=== PATIENT | female | born 1975 | race Caucasian/White ===

== ENCOUNTER 2017-01-24 09:29 | Inpatient (IN) | payer BC ==
[~2017-01-24] VITALS: Ht 157.5 cm; Wt 91.0 kg
[2017-01-24] MEDS ORDERED: morphine 4 MG/ML VIAL IV STA ×3 (12:03→19:05)
[2017-01-24] MEDS ORDERED: SOD CHLORIDE 0.9% 1,000 ML IV STA (12:03)
[2017-01-24] MEDS ORDERED: ONDANSETRON 4 MG INJ IV STA (12:03)
[2017-01-24 12:42] LABS: BASOPHILS % 0.3 % (0.0-2.0); EOSINOPHILS # 0.1 10^3/ul (0.0-0.5); EOSINOPHILS % 0.5 % (0.0-7.0); HEMOGLOBIN 12.9 g/dl (12.0-16.0); LYMPHOCYTES # 2.1 10^3/ul (0.8-2.9); LYMPHOCYTES % 14.7 % (15.0-51.0); MEAN CORPUSCULAR HEMOGLOBIN 29.7 pg (29.0-33.0); MEAN CORPUSCULAR HGB CONC 33.1 g/dl (32.0-37.0); MEAN CORPUSCULAR VOLUME 89.9 fl (82.0-101.0); MEAN PLATELET VOLUME 9.7 fl (7.4-10.4); MONOCYTE # 0.7 10^3/ul (0.3-0.9); NEUTROPHIL # 11.5 10^3/ul (1.6-7.5); NEUTROPHILS % 79.2 % (39.0-77.0); PLATELET COUNT 402 10^3/UL (140-415); RED BLOOD COUNT 4.34 10^6/ul (4.20-5.40); RED CELL DISTRIBUTION WIDTH 13.3 % (11.5-14.5); WHITE BLOOD COUNT 14.5 10^3/ul (4.8-10.8)
[2017-01-24 12:45] LABS: ADD UMIC NO; UR ASCORBIC ACID NEGATIVE (NEGATIVE); UR BILIRUBIN (Dip) NEGATIVE (NEGATIVE); UR BLOOD (Dip) NEGATIVE (NEGATIVE); UR CLARITY CLEAR (CLEAR); UR COLOR YELLOW (YELLOW); UR GLUCOSE (Dip) NEGATIVE (NEGATIVE); UR KETONES (Dip) NEGATIVE (NEGATIVE); UR LEUKOCYTE ESTERASE (Dip) NEGATIVE Leu/ul (NEGATIVE); UR NITRITE (Dip) NEGATIVE (NEGATIVE); UR SPECIFIC GRAVITY (Dip) 1.028 (1.003-1.030); UR TOTAL PROTEIN (Dip) NEGATIVE (NEGATIVE); UR UROBILINOGEN (Dip) NEGATIVE (NEGATIVE)
[2017-01-24 13:00] LABS: ALBUMIN 4.4 g/dl (3.3-4.9); ALBUMIN/GLOBULIN RATIO 1.15; BILIRUBIN,INDIRECT 0.2 mg/dl (0-1.1); BILIRUBIN,TOTAL 0.2 mg/dl (0.2-1.3); CALCIUM 10.2 mg/dl (8.4-10.2); CREATININE 0.67 mg/dl (0.44-1.00); POTASSIUM 4.4 mmol/L (3.5-5.1); TOTAL PROTEIN 8.2 g/dl (6.1-8.1)
[2017-01-24 13:03] LABS: INR 0.94; PROTIME 12.7 Sec (11.9-14.9)
[2017-01-24 13:04] LABS: PARTIAL THROMBOPLASTIN TIME 27.9 Sec (25.0-35.0)
[2017-01-24] MEDS ORDERED: KETOROLAC 30 MG INJ IV STA (14:34)
[2017-01-24] MEDS ORDERED: ACETAMINOPHEN 325 MG TAB PO PRN ×2 (16:00→18:00)
[2017-01-24] MEDS ORDERED: ONDANSETRON 4 MG INJ IV PRN (16:00)
[2017-01-24] MEDS ORDERED: LISI10TA2 PO (16:19)
[2017-01-24] MEDS ORDERED: ASPI-664 PO (16:20)
[2017-01-24] MEDS ORDERED: PROP10TA6 PO (16:20)
[2017-01-24] MEDS ORDERED: GEMF600T60 PO (16:20)
--- NOTE | 2017-01-24 17:39 | HP ---
Date/Time of Note Date/Time of Note DATE: 01/24/17 TIME: 17:30 Assessment/Plan VTE Prophylaxis VTE Prophylaxis Intervention: LMWH Assessment/Plan Chief Complaint/Hosp Course 1. 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 Leukocytosis-likely reactive Monitor 3. Elevated LFTs Check hepatitis family law attorney PPx: Lovenox Problems: HPI/ROS Admit Date/Time Admit Date/Time January 24, 2017 Hx of Present Illness Patient is a 41-year-old female with a history of splenic infarction, patient was recently diagnosed at [facility], she was discharged yesterday after a week long hospitalization. Patient presents today with left upper quadrant pain, of note patient was discharged with pain medications. Patient also reports a history of strokes several years ago although this is questionable as weakness in her body was associated with severe headaches and may have been hemiplegia from a migraine. Patient denies any other medical history, she states that she was told her spleen is nonfunctional. Patient has no other complaints at this time. ROS Constitutional: improved, no complaints Eyes: no complaints ENT: no complaints Respiratory: no complaints Cardiovascular: no complaints Gastrointestinal: pain Genitourinary: no complaints Musculoskeletal: no complaints Skin: no complaints Neurologic: no complaints Endocrine: no complaints Lymphatic: no complaints Psychological: nl mood/affect, no complaints Immunologic: no complaints PMH/Family/Social Past Medical History As per HPI Past Surgical History Past Surgical Hx: appendectomy, cholecystectomy, other () Family History Significant Family History: other (Father with stroke in his 50s) Social History Alcohol Use: none Smoking Status: Never smoker Drug Use: none Exam/Review of Systems Vital Signs Vitals Vital Signs Date Time Temp Pulse Resp B/P Pulse Ox O2 Delivery O2 Flow Rate FiO2 01/24/17 09:34 98.2 102 20 147/94 97 Exam Constitutional: alert, oriented Respiratory: clear to auscultation Cardiovascular: regular rate and rhythm Gastrointestinal: soft, tender, No distended Musculoskeletal: nl extremities to inspection Labs Result Diagram: 01/24/17 1217 01/24/17 1217 VIOLETTE PARDO Jan 24, 2017 17:39
[2017-01-24] MEDS ORDERED: NACL 0.9% 3 ML SYG IV SCH (18:00)
[2017-01-24] MEDS ORDERED: MAGNESIUM HYDROXIDE 30ML CUP PO PRN (18:00)
[2017-01-24] MEDS ORDERED: DOCUSATE SODIUM 100 MG CAP PO PRN (18:00)
[2017-01-24] MEDS ORDERED: ZOLPIDEM 5 MG TAB PO PRN (18:00)
--- NOTE | 2017-01-24 18:02 | ERD ---
ER Documentation Chief Complaint Chief Complaint luq pain just dc'd from other hosp for dx "splenic infarction" HPI This 41-year-old female comes for increasing left upper quadrant pain that has been present since yesterday when she was discharged from the hospital after the morphine wore off. She was seen at [facility] where she had splenic infarction diagnosed. She had no pain while in the hospital because they are giving her constant doses of morphine. She had no pain on discharge either because she had been given morphine. As soon as she got home the morphine wore off and she has had increasingly severe left lower quadrant pain with nausea. The pain is described as a sharp pain is worse on palpation and certain movements. ROS All systems reviewed and are negative except as per history of present illness. Medications Home Meds Reported Medications Gemfibrozil* (Gemfibrozil*) 600 Mg Tablet, 600 MG PO DAILY, TAB 01/24/17 Aspirin* (Aspirin* EC) 81 Mg Tablet.dr, 81 MG PO DAILY, TAB 01/24/17 Propranolol Hcl* (Propranolol Hcl*) 10 Mg Tablet, 10 MG PO DAILY, TAB 01/24/17 Lisinopril* (Lisinopril*) 10 Mg Tablet, 10 MG PO DAILY, #30 TAB 01/24/17 Allergies Allergies: Coded Allergies: latex (Unverified Allergy, Unknown, 01/24/17) PMhx/Soc Hx Cardiac Disorders: Yes (HTN) Hx Alcohol Use: No Hx Substance Use: No Hx Tobacco Use: No Smoking Status: Never smoker Physical Exam Vitals Vital Signs Date Time Temp Pulse Resp B/P Pulse Ox O2 Delivery O2 Flow Rate FiO2 01/24/17 18:58 98.1 72 20 149/92 99 Room Air 01/24/17 18:26 98.5 78 20 130/78 98 Room Air 01/24/17 15:45 71 20 128/71 98 Room Air 01/24/17 09:34 98.2 102 20 147/94 97 Physical Exam Const: [] Moderate distress Head: Atraumatic Eyes: Normal Conjunctiva ENT: Normal External Ears, Nose and Mouth. Neck: Full range of motion..~ No meningismus. Resp: Clear to auscultation bilaterally Cardio: Regular rate and rhythm, no murmurs Abd: Soft, moderate left upper quadrant tenderness without guarding or rebound, non distended. Normal bowel sounds Skin: No petechiae or rashes Back: No midline or flank tenderness Ext: No cyanosis, or edema Neur: Awake and alert 3, no focal deficits Psych: Normal Mood and Affect Result Diagram: 01/24/17 1217 01/24/17 1217 Results 24 hrs Laboratory Tests Test 01/24/17 12:17 White Blood Count 14.510^3/ul Red Blood Count 4.3410^6/ul Hemoglobin 12.9g/dl Hematocrit 39.0% Mean Corpuscular Volume 89.9fl Mean Corpuscular Hemoglobin 29.7pg Mean Corpuscular Hemoglobin Concent 33.1g/dl Red Cell Distribution Width 13.3% Platelet Count 35728^3/UL Mean Platelet Volume 9.7fl Neutrophils % 79.2% Lymphocytes % 14.7% Monocytes % 5.0% Eosinophils % 0.5% Basophils % 0.3% Nucleated Red Blood Cells % 0.0/100WBC Neutrophils # 11.510^3/ul Lymphocytes # 2.110^3/ul Monocytes # 0.710^3/ul Eosinophils # 0.110^3/ul Basophils # 0.010^3/ul Nucleated Red Blood Cells # 0.010^3/ul Prothrombin Time 12.7Sec Prothrombin Time Ratio 1.0 INR International Normalized Ratio 0.94 Activated Partial Thromboplast Time 27.9Sec Urine Color YELLOW Urine Clarity CLEAR Urine pH 8.0 Urine Specific [place] 1.028 Urine Ketones NEGATIVEmg/dL Urine Nitrite NEGATIVEmg/dL Urine Bilirubin NEGATIVEmg/dL Urine Urobilinogen NEGATIVEmg/dL Urine Leukocyte Esterase NEGATIVELeu/ul Urine Hemoglobin NEGATIVEmg/dL Urine Glucose NEGATIVEmg/dL Urine Total Protein NEGATIVEmg/dl Sodium Level 140mmol/L Potassium Level 4.4mmol/L Chloride Level 103mmol/L Carbon Dioxide Level 28mmol/L Anion Gap 13 Blood Urea Nitrogen 12mg/dl Creatinine 0.67mg/dl Glucose Level 102mg/dl Calcium Level 10.2mg/dl Total Bilirubin 0.2mg/dl Direct Bilirubin 0.00mg/dl Indirect Bilirubin 0.2mg/dl Aspartate Amino Transf (AST/SGOT) 93IU/L Alanine Aminotransferase (ALT/SGPT) 138IU/L Alkaline Phosphatase 114IU/L Total Protein 8.2g/dl Albumin 4.4g/dl Globulin 3.80g/dl Albumin/Globulin Ratio 1.15 Lipase 71U/L Current Medications Medications (Trade) Dose Ordered Sig/Hernandez Route PRN Reason Start Time Stop Time Status Last Admin Dose Admin Sodium Chloride (NS) 1,000 ml @ 1,000 mls/hr Q1H STAT IV 01/24/17 12:03 01/24/17 13:02 DC 01/24/17 12:22 Morphine Sulfate (morphine) 4 mg ONCE STAT IV 01/24/17 12:03 01/24/17 12:05 DC 01/24/17 12:22 Ondansetron HCl (Zofran Inj) 4 mg ONCE STAT IV 01/24/17 12:03 01/24/17 12:05 DC 01/24/17 12:23 Ketorolac Tromethamine (Toradol) 30 mg ONCE STAT IV 01/24/17 14:34 01/24/17 14:36 DC 01/24/17 15:37 Morphine Sulfate (morphine) 4 mg ONCE STAT IV 01/24/17 15:32 01/24/17 15:33 DC 01/24/17 15:37 Ondansetron HCl (Zofran Inj) 4 mg BRIDGE ORDER PRN IV NAUSEA AND/OR VOMITING 01/24/17 16:00 01/25/17 15:59 Acetaminophen 650 mg 650 mg ER BRIDGE PRN PO MILD PAIN/FEVER 01/24/17 16:00 01/25/17 15:59 Sodium Chloride (1/2 NS) 1,000 ml @ 100 mls/hr Q10H IV 01/24/17 17:37 IV Flush (NS 3 ml) 3 ml PER PROTOCOL IV 01/24/17 18:00 Ondansetron HCl (Zofran Inj) 4 mg Q6H PRN IV NAUSEA AND/OR VOMITING 01/24/17 18:00 Acetaminophen (Tylenol Tab) 650 mg Q6H PRN PO PAIN LEVEL 1-3 OR FEVER 01/24/17 18:00 Acetaminophen/ Hydrocodone Bitart ([place] (5/325)) 1 tab Q6H PRN PO MODERATE PAIN LEVEL 4-6 01/24/17 18:00 Morphine Sulfate (morphine) 2 mg Q3 PRN IV SEVERE PAIN LEVEL 7-10 01/24/17 18:00 Docusate Sodium (Colace) 100 mg Q12H PRN PO CONSTIPATION 01/24/17 18:00 Magnesium Hydroxide (Milk Of Mag) 30 ml DAILY PRN PO CONSTIPATION 01/24/17 18:00 Zolpidem Tartrate (Ambien) 5 mg QHS PRN PO SLEEP 01/24/17 18:00 Enoxaparin Sodium (Lovenox) 40 mg DAILY SC 01/25/17 09:00 Aspirin (Halfprin) 81 mg DAILY PO 01/25/17 09:00 Gemfibrozil (Lopid) 600 mg DAILY PO 01/25/17 09:00 Lisinopril (Zestril) 10 mg DAILY PO 01/25/17 09:00 Propranolol HCl (Inderal) 10 mg DAILY PO 01/25/17 09:00 Procedures/MDM Splenic infarction with intractable pain. Patient was given morphine, Zofran and liter of IV fluid initially. Morphine did help with the pain but the pain quickly returned. She required repeated doses of morphine. She has elevated white blood cell count consistent with splenic infarction without any other signs of acute infection. I did obtain records from [facility] which showed a CT with splenic infarctions I did not have to repeat that. I am also consulting Dr. Michael Angelo. Vascular specialist who agrees to see the patient on consult. She is being admitted to the medical surgical floor to Dr. Cancino. Departure Diagnosis: Primary Impression: Splenic infarction Additional Impressions: Intractable pain Leukocytosis Condition: FANNIE Sexton DO Jan 24, 2017 18:02
[2017-01-24 18:26] VITALS: TEMP 98.5
[2017-01-24 18:58] VITALS: BP 149/92; PULSE 72; RESP 20
[2017-01-24 19:53] VITALS: Ht 157.5 cm; Wt 91.0 kg
[2017-01-24 20:29] VITALS: BP 129/76; RESP 18
[2017-01-24] MEDS: SOD CHLORIDE 0.45% 1,000 ML IV SCH (20:32)
[2017-01-25] MEDS: morphine 2 MG INJ IV PRN ×5 (00:16→22:36)
[2017-01-25] MEDS: ONDANSETRON 4 MG INJ IV PRN ×2 (00:31→07:27)
[2017-01-25 02:32] VITALS: BP 122/62; RESP 16
[2017-01-25] MEDS: SOD CHLORIDE 0.45% 1,000 ML IV SCH ×3 (03:37→19:02)
[2017-01-25 05:58] LABS: BASOPHILS % 0.3 % (0.0-2.0); EOSINOPHILS # 0.1 10^3/ul (0.0-0.5); EOSINOPHILS % 1.3 % (0.0-7.0); HEMATOCRIT 33.6 % (37.0-47.0); LYMPHOCYTES # 3.1 10^3/ul (0.8-2.9); LYMPHOCYTES % 45.9 % (15.0-51.0); MEAN CORPUSCULAR HEMOGLOBIN 29.6 pg (29.0-33.0); MEAN CORPUSCULAR HGB CONC 32.7 g/dl (32.0-37.0); MEAN CORPUSCULAR VOLUME 90.3 fl (82.0-101.0); MEAN PLATELET VOLUME 9.7 fl (7.4-10.4); MONOCYTE # 0.5 10^3/ul (0.3-0.9); MONOCYTES % 8.1 % (0.0-11.0); NEUTROPHILS % 44.3 % (39.0-77.0); PLATELET COUNT 344 10^3/UL (140-415); RED BLOOD COUNT 3.72 10^6/ul (4.20-5.40); RED CELL DISTRIBUTION WIDTH 13.4 % (11.5-14.5); WHITE BLOOD COUNT 6.7 10^3/ul (4.8-10.8)
[2017-01-25 06:23] LABS: ALBUMIN 3.4 g/dl (3.3-4.9); BILIRUBIN,INDIRECT 0.3 mg/dl (0-1.1); BILIRUBIN,TOTAL 0.3 mg/dl (0.2-1.3); CREATININE 0.69 mg/dl (0.44-1.00); PHOSPHORUS 3.8 mg/dl (2.5-4.9); POTASSIUM 4.2 mmol/L (3.5-5.1); TOTAL PROTEIN 6.8 g/dl (6.1-8.1)
[2017-01-25 08:11] VITALS: BP 133/67; RESP 20
[2017-01-25] MEDS ORDERED: INFLUENZA VIRUS VACCINE 0.5 ML (DISPENSING) IM* ONE (09:00)
[2017-01-25] MEDS ORDERED: ENOXAPARIN 40 MG/0.4 ML SYG SC SCH (09:00)
[2017-01-25] MEDS: ASPIRIN (EC) 81 MG TAB PO SCH (09:13)
[2017-01-25] MEDS: PROPRANOLOL 10 MG TAB PO SCH (09:13)
[2017-01-25] MEDS: LISINOPRIL 10 MG TAB PO SCH (09:13)
[2017-01-25] MEDS: GEMFIBROZIL 600 MG TAB PO SCH (09:13)
[2017-01-25] MEDS: HYDROCODONE/APAP (5/325) TAB PO PRN ×2 (09:13→20:54)
[2017-01-25] MEDS ORDERED: morphine 2 MG INJ IV STA (14:33)
--- NOTE | 2017-01-25 14:44 | RADRPT ---
PROCEDURE: US Liver. CLINICAL INDICATION: abdominal pain , cirrhosis TECHNIQUE: Multiple real-time images were acquired of the patient's right upper quadrant abdomen u tilizing a high resolution transducer. COMPARISON: None FINDINGS: The liver demonstrates increased echogenicity. There is slightly increased nodularity of the liver. The liver is normal in size and no focal solid lesions are seen. The liver measures 16.5 cm in barrett th. The portal vein is patent with normal direction of flow. No intrahepatic biliary dilatation is seen. The visualized portions of the pancreas are unremarkable. The tail of the pancreas is not seen. No free fluid is identified. RPTAT: AA IMPRESSION: Fatty infiltration of the liver with slightly increased nodularity, suspicious for chronic liver dis ease. .Marshall Real MD, Date Time Electronically viewed and signed by .Marshall Real MD, on 01/25/2017 14:43 .S/
[2017-01-25 15:05] VITALS: BP 128/74; RESP 20
--- NOTE | 2017-01-25 17:41 | PN ---
Date/Time of Note Date/Time of Note DATE: 01/25/17 TIME: 17:36 Assessment/Plan VTE Prophylaxis VTE Prophylaxis Intervention: LMWH Lines/Catheters IV Catheter Type (from Nrsg): Peripheral IV Assessment/Plan Chief Complaint/Hosp Course 1. Left upper quadrant pain secondary to splenic infarction Patient was recently diagnosed with this at [facility], patient was hospitalized for a week and was recently discharged CT abdomen at outside hospital was reviewed and splenic infarction was noted on imaging Patient did have hypercoagulable workup initiated at [facility] and pt is to follow-up as an outpatient for results No indication for new hypercoagulable workup during his hospitalization and hence the need for hematology consultation at this time Continue with pain control and IV fluids Pain control Vascular surgery was consulted by ER physician 2. Leukocytosis-likely reactive Monitor 3. Elevated LFTs Check hepatitis panel Ultrasound of liver shows fatty liver with likely chronic liver disease PPx: Lovenox Charge planning: DC when pain under control, patient follow-up with PCP for results of hypercoagulable workup Problems: Subjective 24 Hr Interval Summary Gastrointestinal: pain Exam/Review of Systems Vital Signs Vitals Vital Signs Date Time Temp Pulse Resp B/P Pulse Ox O2 Delivery O2 Flow Rate FiO2 01/25/17 15:05 98.0 90 20 128/74 98 01/24/17 18:58 Room Air Intake and Output 01/24/17 01/24/17 01/25/17 15:00 23:00 07:00 Intake Total 1120 ml Balance 1120 ml Exam Constitutional: alert, oriented Respiratory: clear to auscultation Cardiovascular: regular rate and rhythm Gastrointestinal: soft, tender, No distended Musculoskeletal: nl extremities to inspection Results Result Diagram: 01/25/17 0506 01/25/17 0506 Results 24 hrs Laboratory Tests Test 01/25/17 05:06 White Blood Count 6.7 # Red Blood Count 3.72 L Hemoglobin 11.0 L Hematocrit 33.6 L Mean Corpuscular Volume 90.3 Mean Corpuscular Hemoglobin 29.6 Mean Corpuscular Hemoglobin Concent 32.7 Red Cell Distribution Width 13.4 Platelet Count 344 Mean Platelet Volume 9.7 Neutrophils % 44.3 Lymphocytes % 45.9 Monocytes % 8.1 Eosinophils % 1.3 Basophils % 0.3 Nucleated Red Blood Cells % 0.0 Neutrophils # 3.0 Lymphocytes # 3.1 H Monocytes # 0.5 Eosinophils # 0.1 Basophils # 0.0 Nucleated Red Blood Cells # 0.0 Sodium Level 141 Potassium Level 4.2 Chloride Level 106 Carbon Dioxide Level 28 Anion Gap 11 Blood Urea Nitrogen 10 Creatinine 0.69 Glucose Level 93 Hemoglobin A1c 4.9 Calcium Level 9.0 Phosphorus Level 3.8 Magnesium Level 2.0 Total Bilirubin 0.3 Direct Bilirubin 0.00 Indirect Bilirubin 0.3 Aspartate Amino Transf (AST/SGOT) 68 H Alanine Aminotransferase (ALT/SGPT) 110 H Alkaline Phosphatase 89 Total Protein 6.8 # Albumin 3.4 # Globulin 3.40 H Albumin/Globulin Ratio 1.00 Medications Medications Current Medications Sodium Chloride (1/2 NS) 1,000 ml @ 100 mls/hr Q10H IV Last administered on 05:54; Admin Dose 100 MLS/HR; Start 01/24/17 at 17:37 Ondansetron HCl (Zofran Inj) 4 mg Q6H PRN IV NAUSEA AND/OR VOMITING Last administered on 01/25/17 07:27; Admin Dose 4 MG; Start 01/24/17 at 18:00 Acetaminophen (Tylenol Tab) 650 mg Q6H PRN PO PAIN LEVEL 1-3 OR FEVER; Start 01/24/17 at 18:00 Acetaminophen/ Hydrocodone Bitart ([place] (5/325)) 1 tab Q6H PRN PO MODERATE PAIN LEVEL 4-6 Last administered on 01/25/17 09:13; Admin Dose 1 TAB; Start at 18:00 Morphine Sulfate (morphine) 2 mg Q3 PRN IV SEVERE PAIN LEVEL 7-10 Last administered on 01/25/17 13:41; Admin Dose 2 MG; Start 01/24/17 at 18:00 Docusate Sodium (Colace) 100 mg Q12H PRN PO CONSTIPATION; Start 01/24/17 at 18: 00 Magnesium Hydroxide (Milk Of Mag) 30 ml DAILY PRN PO CONSTIPATION; Start at 18:00 Zolpidem Tartrate (Ambien) 5 mg QHS PRN PO SLEEP; Start 01/24/17 at 18:00 Enoxaparin Sodium (Lovenox) 40 mg DAILY SC Last administered on 01/25/17 09:14 ; Admin Dose 40 MG; Start 01/25/17 at 09:00 Aspirin (Halfprin) 81 mg DAILY PO Last administered on 01/25/17 09:13; Admin Dose 81 MG; Start 01/25/17 at 09:00 Gemfibrozil (Lopid) 600 mg DAILY PO Last administered on 01/25/17 09:13; Admin Dose 600 MG; Start 01/25/17 at 09:00 Lisinopril (Zestril) 10 mg DAILY PO Last administered on 01/25/17 09:13; Admin Dose 10 MG; Start 01/25/17 at 09:00 Propranolol HCl (Inderal) 10 mg DAILY PO Last administered on 01/25/17 09:13; Admin Dose 10 MG; Start 01/25/17 at 09:00 VIOLETTE PARDO Jan 25, 2017 17:41
--- NOTE | 2017-01-25 18:45 | CONS ---
Date/Time of Note Date/Time of Note DATE: 01/25/17 TIME: 18:44 Assessment/Plan Assessment/Plan Chief Complaint/Hosp Course 1. HYPERCOAGULABLE STATE WITH splenic infarction AND MULTILPE TIAs IN THE PAST Patient was recently diagnosed with this at [facility], patient was hospitalized for a week and was recently discharged CT abdomen at outside hospital was reviewed and splenic infarction was noted on imaging PROCEED WITH hypercoagulable workup Continue with pain control and IV fluids Pain control Vascular surgery was consulted by ER physician RISHI JENKINS [facility] RECORD 2. Leukocytosis-likely reactive Monitor 3. Elevated LFTs hepatitis panel-P Ultrasound of liver shows fatty liver with likely chronic liver disease 4. INCREASED GLOBULINS- CHECK SPEP AND QUANTITATIVE GLOBULINS PPx: Concepcion Problems: Consultation Date/Type/Reason Admit Date/Time January 24, 2017 Date of Consultation: Jan 25, 2017 Type of Consultation: hemeonc Reason for Consultation hypercoagulable state Referring Provider: VIOLETTE PARDO of Present Illness Patient is a 41-year-old female with a history of splenic infarction, patient was recently diagnosed at [facility], she was discharged 2 days ago after a week long hospitalization. Patient presented with left upper quadrant pain, of note patient was discharged with pain medications. Patient also reports a history of strokes several years ago although this is questionable as weakness in her body was associated with severe headaches and may have been hemiplegia from a migraine. Patient denies any other medical history, she states that she was told her spleen is nonfunctional. Patient has no other complaints at this time. i was asked to prove hemeonc consult and proceed with hypercoagulable w-up ROS Constitutional: improved, no complaints Eyes: no complaints ENT: no complaints Respiratory: no complaints Cardiovascular: no complaints Gastrointestinal: pain Genitourinary: no complaints Musculoskeletal: no complaints Skin: no complaints Neurologic: no complaints Endocrine: no complaints Lymphatic: no complaints Psychological: nl mood/affect, no complaints Immunologic: no complaints PMH/Family/Social PMH/Family/Social Past Medical History As per HPI Past Surgical History Past Surgical Hx: appendectomy, cholecystectomy, other () Family History Significant Family History: other (Father with stroke in his 50s) Social History Alcohol Use: none Smoking Status: Never smoker Drug Use: none Past Surgical History Past Surgical Hx: appendectomy, cholecystectomy, other () Social History Alcohol Use: none Smoking Status: Never smoker Drug Use: none Exam/Review of Systems Vital Signs Vitals Vital Signs Date Time Temp Pulse Resp B/P Pulse Ox O2 Delivery O2 Flow Rate FiO2 01/25/17 15:05 98.0 90 20 128/74 98 01/24/17 18:58 Room Air Intake and Output 01/24/17 01/24/17 01/25/17 15:00 23:00 07:00 Intake Total 1120 ml Balance 1120 ml Exam Const: [] Moderate distress Head: Atraumatic Eyes: Normal Conjunctiva ENT: Normal External Ears, Nose and Mouth. Neck: Full range of motion..~ No meningismus. Resp: Clear to auscultation bilaterally Cardio: Regular rate and rhythm, no murmurs Abd: Soft, moderate left upper quadrant tenderness without guarding or rebound, non distended. Normal bowel sounds Skin: No petechiae or rashes Back: No midline or flank tenderness Ext: No cyanosis, or edema Neur: Awake and alert 3, no focal deficits Psych: Normal Mood and Affect Results Result Diagram: 01/25/17 0506 01/25/17 0506 Results 24 hrs Laboratory Tests Test 01/25/17 05:06 White Blood Count 6.7 # Red Blood Count 3.72 L Hemoglobin 11.0 L Hematocrit 33.6 L Mean Corpuscular Volume 90.3 Mean Corpuscular Hemoglobin 29.6 Mean Corpuscular Hemoglobin Concent 32.7 Red Cell Distribution Width 13.4 Platelet Count 344 Mean Platelet Volume 9.7 Neutrophils % 44.3 Lymphocytes % 45.9 Monocytes % 8.1 Eosinophils % 1.3 Basophils % 0.3 Nucleated Red Blood Cells % 0.0 Neutrophils # 3.0 Lymphocytes # 3.1 H Monocytes # 0.5 Eosinophils # 0.1 Basophils # 0.0 Nucleated Red Blood Cells # 0.0 Sodium Level 141 Potassium Level 4.2 Chloride Level 106 Carbon Dioxide Level 28 Anion Gap 11 Blood Urea Nitrogen 10 Creatinine 0.69 Glucose Level 93 Hemoglobin A1c 4.9 Calcium Level 9.0 Phosphorus Level 3.8 Magnesium Level 2.0 Total Bilirubin 0.3 Direct Bilirubin 0.00 Indirect Bilirubin 0.3 Aspartate Amino Transf (AST/SGOT) 68 H Alanine Aminotransferase (ALT/SGPT) 110 H Alkaline Phosphatase 89 Total Protein 6.8 # Albumin 3.4 # Globulin 3.40 H Albumin/Globulin Ratio 1.00 Medications Medications Current Medications Sodium Chloride (1/2 NS) 1,000 ml @ 100 mls/hr Q10H IV Last administered on 05:54; Admin Dose 100 MLS/HR; Start 01/24/17 at 17:37 Ondansetron HCl (Zofran Inj) 4 mg Q6H PRN IV NAUSEA AND/OR VOMITING Last administered on 01/25/17 07:27; Admin Dose 4 MG; Start 01/24/17 at 18:00 Acetaminophen (Tylenol Tab) 650 mg Q6H PRN PO PAIN LEVEL 1-3 OR FEVER; Start 01/24/17 at 18:00 Acetaminophen/ Hydrocodone Bitart ([place] (5/325)) 1 tab Q6H PRN PO MODERATE PAIN LEVEL 4-6 Last administered on 01/25/17 09:13; Admin Dose 1 TAB; Start at 18:00 Morphine Sulfate (morphine) 2 mg Q3 PRN IV SEVERE PAIN LEVEL 7-10 Last administered on 01/25/17 13:41; Admin Dose 2 MG; Start 01/24/17 at 18:00 Docusate Sodium (Colace) 100 mg Q12H PRN PO CONSTIPATION; Start 01/24/17 at 18: 00 Magnesium Hydroxide (Milk Of Mag) 30 ml DAILY PRN PO CONSTIPATION; Start at 18:00 Zolpidem Tartrate (Ambien) 5 mg QHS PRN PO SLEEP; Start 01/24/17 at 18:00 Enoxaparin Sodium (Lovenox) 40 mg DAILY SC Last administered on 01/25/17 09:14 ; Admin Dose 40 MG; Start 01/25/17 at 09:00 Aspirin (Halfprin) 81 mg DAILY PO Last administered on 01/25/17 09:13; Admin Dose 81 MG; Start 01/25/17 at 09:00 Gemfibrozil (Lopid) 600 mg DAILY PO Last administered on 01/25/17 09:13; Admin Dose 600 MG; Start 01/25/17 at 09:00 Lisinopril (Zestril) 10 mg DAILY PO Last administered on 01/25/17 09:13; Admin Dose 10 MG; Start 01/25/17 at 09:00 Propranolol HCl (Inderal) 10 mg DAILY PO Last administered on 01/25/17t 09:13; Admin Dose 10 MG; Start 01/25/17 at 09:00 JOANNE ROBBINS MD Jan 25, 2017 18:45
[2017-01-25 20:00] VITALS: BP 103/58; PULSE 71; RESP 18
[2017-01-25] MEDS: ENOXAPARIN 100 MG/ML SYG SC SCH (20:57)
[2017-01-26 03:08] VITALS: BP 98/53; RESP 16
[2017-01-26] MEDS: morphine 2 MG INJ IV PRN (05:50)
[2017-01-26] MEDS: SOD CHLORIDE 0.45% 1,000 ML IV SCH ×2 (05:50→17:32)
[2017-01-26 06:10] LABS: HAAIG REFLEX REFLEX FILED
[2017-01-26 06:31] LABS: BASOPHIL # 0.1 10^3/ul (0.0-0.1); BASOPHILS % 0.8 % (0.0-2.0); EOSINOPHILS # 0.1 10^3/ul (0.0-0.5); EOSINOPHILS % 2.2 % (0.0-7.0); HEMATOCRIT 33.7 % (37.0-47.0); LYMPHOCYTES # 3.5 10^3/ul (0.8-2.9); LYMPHOCYTES % 53.3 % (15.0-51.0); MEAN CORPUSCULAR HEMOGLOBIN 29.7 pg (29.0-33.0); MEAN CORPUSCULAR HGB CONC 32.6 g/dl (32.0-37.0); MEAN CORPUSCULAR VOLUME 91.1 fl (82.0-101.0); MEAN PLATELET VOLUME 9.9 fl (7.4-10.4); MONOCYTE # 0.4 10^3/ul (0.3-0.9); MONOCYTES % 6.8 % (0.0-11.0); NEUTROPHIL # 2.4 10^3/ul (1.6-7.5); NEUTROPHILS % 36.7 % (39.0-77.0); PLATELET COUNT 380 10^3/UL (140-415); RED CELL DISTRIBUTION WIDTH 13.5 % (11.5-14.5); WHITE BLOOD COUNT 6.5 10^3/ul (4.8-10.8)
[2017-01-26 06:39] LABS: RETICULOCYTE COUNT % 1.8 % (0.5-1.5)
[2017-01-26 07:08] LABS: IRON 58 ug/dl (35-150)
[2017-01-26 07:09] LABS: LACTATE DEHYDROGENASE 457 IU/L (313-618)
[2017-01-26 07:17] LABS: TOTAL IRON BINDING CAPACITY 334 ug/dl (241-421)
[2017-01-26 07:23] LABS: CALCIUM 8.6 mg/dl (8.4-10.2); CREATININE 0.66 mg/dl (0.44-1.00); POTASSIUM 3.9 mmol/L (3.5-5.1)
[2017-01-26 07:28] LABS: HEPATITIS B CORE ANTIBODY NEGATIVE (NEGATIVE)
[2017-01-26 07:44] LABS: FERRITIN 32.8 ng/ml (6.2-137.0)
[2017-01-26 07:58] VITALS: RESP 18
--- NOTE | 2017-01-26 08:08 | HP ---
DATE OF ADMISSION: 01/24/2017 VASCULAR SURGERY CONSULTATION Dear Doctors: Ms. Guerrero is a 41-year-old female who presented to [facility] secondary to findin gs of left upper quadrant abdominal pain in which it was quite significant in severity and as of rec ent, was admitted to [facility] for evaluation of similar findings. At that time it was id entified the patient had significant splenic infarctions and underwent hypercoagulable workup which studies had not characterized a specific thrombotic syndrome. What is interesting about this case i s that the patient has had a recent history of right brain stroke in which she underwent left-sided paralysis with speech difficulty and underwent therapy for about 6 months in which she has recovered . Of note, this is an unusual finding and at that time it seems that the patient did have a hyperco agulable workup; however, the patient did not specifically get connected to a surgical coordinator or for fu rther evaluation of unusual oncological findings. At the moment, speaking with the family, she does describe that her father had a significant stroke at the age of 50 and soon after that . Her mother from cancer and her uncle, her dad's brother, of a related "blood disease" but she is not able to explain any further. Th e patient's own history, she has had 3 pregnancies, all 3 were C-sections. She had premature births for all 3, about 4 weeks early and she mentions that this was secondary to epilepsy during all of h er pregnancies. She has not had an episode of any seizures for many years now. PAST MEDICAL HISTORY: Entails morbidly obese with elevated BMI, hypertension, hypercholesterolemia, previous right-sided brain stroke. PAST SURGICAL HISTORY: None has been reported. FAMILY HISTORY: As mentioned above. SOCIAL HISTORY: Denies tobacco, alcohol or illicit drug use. Patient does not use oral contracepti ve pills. She did have a previous history of a tubal ligation and IUD for control. PHYSICAL EXAMINATION: GENERAL: Alert and oriented x3, no apparent distress. HEENT: Normocephalic, atraumatic. PERRLA, EOMI. Mucosa moist. NECK: Supple. No carotid bruit. PULMONARY: Clear to auscultation bilaterally. No crackles. CARDIOVASCULAR: S1, S2 present. No murmurs. ABDOMEN: Soft. Left upper quadrant tenderness that extends to her CVA. Otherwise, bowel sounds po sitive. Large truncal obesity. EXTREMITIES: Lower extremities, palpable femoral pulse, palpable pedal pulse. Motor, sensory intac t. Cap refill 2 seconds. ASSESSMENT: Splenic infarction: It seems to be an unusual finding given her age for the patient to have sustained a splenic infarction. In light of her recent history of a right-sided brain stroke in which patient had paralysis of her left upper and left lower extremity with speech difficulties i n which she required therapy to recover, I am very concerned the patient may have a hypercoagulable state in which we have not been able to characterize with our current blood works. This will requir e further evaluation by our hematology/oncology colleagues. I would recommend, however, at the [facility] nt the patient should be started on anticoagulation until we are able to further figure out and deli neate these types of findings. PLAN: 1. I would also recommend for the patient to undergo cardiac workup with obtaining an echo to rule out any suggestion of cardiac as a source. 2. If the patient's creatinine allows, would recommend obtaining a CT angiography of the chest, abd omen and pelvis to further delineate her aortoiliac for any other findings such as a thrombus within her aorta. 3. Optimize vascular status (BP, meds, diet, nutrition, exercise, weight loss and anticoagulation). 4. Discussed with the patient about weight loss, diet, nutrition and regarding her BMI and provided all the necessary information and supports for her. 5. We will plan to continue this interesting case with our multidisciplinary team. 6. Discussed findings, plan and management with the patient with a certified paving inspector and she und erstands all that is involved. 7. I have discussed all the risks, benefits of starting the patient on anticoagulation and I have d iscussed possible intracranial hemorrhage, possible other bleeding issues, and patient underst ands and is willing to take the risks for starting on anticoagulation given the recent histories of what seems to be hypercoagulable state with unidentified or uncharacterized specific thrombotic synd marj. Thank you for allowing us to participate in the care of your patient. Please call with any question s. Dictated By: KATHIA LONGORIA/JASPAL Conf#: [id number] DID#: [id number]
[2017-01-26] MEDS: ASPIRIN (EC) 81 MG TAB PO SCH (08:57)
[2017-01-26] MEDS: GEMFIBROZIL 600 MG TAB PO SCH (08:57)
[2017-01-26] MEDS: PROPRANOLOL 10 MG TAB PO SCH (08:58)
[2017-01-26] MEDS: LISINOPRIL 10 MG TAB PO SCH (08:58)
[2017-01-26] MEDS: ENOXAPARIN 100 MG/ML SYG SC SCH ×2 (09:01→21:02)
[2017-01-26 11:54] LABS: IMMUNOGLOBULIN A 177 mg/dl (70-400); IMMUNOGLOBULIN G 965 mg/dl (700-1600); IMMUNOGLOBULIN M 64 mg/dl (40-230)
--- NOTE | 2017-01-26 12:34 | CONS ---
Date/Time of Note Date/Time of Note DATE: 01/26/17 TIME: 12:34 Assessment/Plan Assessment/Plan Chief Complaint/Hosp Course 1. 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 Leukocytosis-likely reactive Monitor 3. Elevated LFTs hepatitis panel-P Ultrasound of liver shows fatty liver with likely chronic liver disease 4. INCREASED GLOBULINS- CHECK SPEP AND QUANTITATIVE GLOBULINS PPx: Concepcion Problems: Consultation Date/Type/Reason Admit Date/Time Jan 26, 2017 at 11:31 Initial Consult Date 01/25/17 [facility] Referring Provider: VIOLETTE PARDO Exam/Review of Systems Vital Signs Vitals Vital Signs Date Time Temp Pulse Resp B/P Pulse Ox O2 Delivery O2 Flow Rate FiO2 01/26/17 07:58 97.9 71 18 95 01/24/17 18:58 Room Air Intake and Output 01/25/17 01/25/17 01/26/17 15:00 23:00 07:00 Intake Total 1940 ml 1560 ml Output Total 1300 ml 700 ml Balance 640 ml 860 ml Results Result Diagram: 01/26/17 0439 01/26/17 0440 Results 24 hrs Laboratory Tests Test 01/26/17 04:34 01/26/17 04:39 01/26/17 04:40 01/26/17 05:27 Immunoglobulin G 965 Immunoglobulin A 177 Immunoglobulin M 64 White Blood Count 6.5 Red Blood Count 3.70 L Hemoglobin 11.0 L Hematocrit 33.7 L Mean Corpuscular Volume 91.1 Mean Corpuscular Hemoglobin 29.7 Mean Corpuscular Hemoglobin Concent 32.6 Red Cell Distribution Width 13.5 Platelet Count 380 Mean Platelet Volume 9.9 Neutrophils % 36.7 L Lymphocytes % 53.3 H Monocytes % 6.8 Eosinophils % 2.2 Basophils % 0.8 Nucleated Red Blood Cells % 0.0 Neutrophils # 2.4 Lymphocytes # 3.5 H Monocytes # 0.4 Eosinophils # 0.1 Basophils # 0.1 Nucleated Red Blood Cells # 0.0 Sodium Level 140 Potassium Level 3.9 Chloride Level 105 Carbon Dioxide Level 26 Anion Gap 13 Blood Urea Nitrogen 8 Creatinine 0.66 Glucose Level 87 Calcium Level 8.6 Hepatitis B Surface Antigen NEGATIVE Hepatitis B Core Total Antibody NEGATIVE Hepatitis C Antibody NEGATIVE Erythrocyte Sedimentation Rate 36 H Absolute Reticulocyte Count 0.068 Percent Reticulocyte Count 1.8 H Uric Acid 5.0 Iron Level 58 Total Iron Binding Capacity 334 Percent Iron Saturation 17 L Ferritin 32.8 Lactate Dehydrogenase 457 HIV (1&2) Antibody NEGATIVE Medications Medications Current Medications Sodium Chloride (1/2 NS) 1,000 ml @ 100 mls/hr Q10H IV Last administered on 05:50; Admin Dose 100 MLS/HR; Start 01/24/17 at 17:37 Ondansetron HCl (Zofran Inj) 4 mg Q6H PRN IV NAUSEA AND/OR VOMITING Last administered on 01/25/17 07:27; Admin Dose 4 MG; Start 01/24/17 at 18:00 Acetaminophen (Tylenol Tab) 650 mg Q6H PRN PO PAIN LEVEL 1-3 OR FEVER; Start 01/24/17 at 18:00 Acetaminophen/ Hydrocodone Bitart ([place] (5/325)) 1 tab Q6H PRN PO MODERATE PAIN LEVEL 4-6 Last administered on 01/25/17 20:54; Admin Dose 1 TAB; Start at 18:00 Morphine Sulfate (morphine) 2 mg Q3 PRN IV SEVERE PAIN LEVEL 7-10 Last administered on 01/26/17 05:50; Admin Dose 2 MG; Start 01/24/17 at 18:00 Docusate Sodium (Colace) 100 mg Q12H PRN PO CONSTIPATION; Start 01/24/17 at 18: 00 Magnesium Hydroxide (Milk Of Mag) 30 ml DAILY PRN PO CONSTIPATION; Start at 18:00 Zolpidem Tartrate (Ambien) 5 mg QHS PRN PO SLEEP; Start 01/24/17 at 18:00 Aspirin (Halfprin) 81 mg DAILY PO Last administered on 01/26/17 08:57; Admin Dose 81 MG; Start 01/25/17 at 09:00 Gemfibrozil (Lopid) 600 mg DAILY PO Last administered on 01/26/17 08:57; Admin Dose 600 MG; Start 01/25/17 at 09:00 Lisinopril (Zestril) 10 mg DAILY PO Last administered on 01/26/17 08:58; Admin Dose 10 MG; Start 01/25/17 at 09:00 Propranolol HCl (Inderal) 10 mg DAILY PO Last administered on 01/26/17 08:58; Admin Dose 10 MG; Start 01/25/17 at 09:00 Enoxaparin Sodium (Lovenox) 90 mg Q12 SC Last administered on 01/26/17 09:01; Admin Dose 90 MG; Start 01/25/17 at 21:00 Warfarin Sodium (Coumadin) 5 mg DAILY@17 PO ; Start 01/26/17 at 17:00 JOANNE ROBBINS MD Jan 26, 2017 12:34
--- NOTE | 2017-01-26 14:27 | PN ---
Date/Time of Note Date/Time of Note DATE: 01/26/17 TIME: 14:24 Assessment/Plan VTE Prophylaxis VTE Prophylaxis Intervention: LMWH Lines/Catheters IV Catheter Type (from Nrsg): Peripheral IV Urinary Cath still in place: No Assessment/Plan Chief Complaint/Hosp Course 1. Left upper quadrant pain secondary to splenic infarction Patient was recently diagnosed with this at [facility], patient was hospitalized for a week and was recently discharged CT abdomen at outside hospital was reviewed and splenic infarction was noted on imaging Patient did have hypercoagulable workup initiated at [facility] but results are not known Hematology consultation appreciated for hyper coagulable workup in house Have started Lovenox and Coumadin, will see if patient can qualify for Eliquis or Xarelto Continue with pain control and IV fluids Pain control Vascular surgery consultation appreciated, no indication for surgery at this time 2. Leukocytosis-resolved 3. Elevated LFTs Hepatitis panel is negative Ultrasound of liver shows fatty liver with likely chronic liver disease PPx: Lovenox Problems: Subjective 24 Hr Interval Summary Gastrointestinal: pain Exam/Review of Systems Vital Signs Vitals Vital Signs Date Time Temp Pulse Resp B/P Pulse Ox O2 Delivery O2 Flow Rate FiO2 01/26/17 07:58 97.9 71 18 95 01/24/17 18:58 Room Air Intake and Output 01/25/17 01/25/17 01/26/17 15:00 23:00 07:00 Intake Total 1940 ml 1560 ml Output Total 1300 ml 700 ml Balance 640 ml 860 ml Exam Constitutional: alert, oriented Respiratory: clear to auscultation Cardiovascular: regular rate and rhythm Gastrointestinal: soft, tender, No distended Musculoskeletal: nl extremities to inspection Results Result Diagram: 01/26/17 0439 01/26/17 0440 Results 24 hrs Laboratory Tests Test 01/26/17 04:34 01/26/17 04:39 01/26/17 04:40 01/26/17 05:27 Immunoglobulin G 965 Immunoglobulin A 177 Immunoglobulin M 64 White Blood Count 6.5 Red Blood Count 3.70 L Hemoglobin 11.0 L Hematocrit 33.7 L Mean Corpuscular Volume 91.1 Mean Corpuscular Hemoglobin 29.7 Mean Corpuscular Hemoglobin Concent 32.6 Red Cell Distribution Width 13.5 Platelet Count 380 Mean Platelet Volume 9.9 Neutrophils % 36.7 L Lymphocytes % 53.3 H Monocytes % 6.8 Eosinophils % 2.2 Basophils % 0.8 Nucleated Red Blood Cells % 0.0 Neutrophils # 2.4 Lymphocytes # 3.5 H Monocytes # 0.4 Eosinophils # 0.1 Basophils # 0.1 Nucleated Red Blood Cells # 0.0 Sodium Level 140 Potassium Level 3.9 Chloride Level 105 Carbon Dioxide Level 26 Anion Gap 13 Blood Urea Nitrogen 8 Creatinine 0.66 Glucose Level 87 Calcium Level 8.6 Hepatitis B Surface Antigen NEGATIVE Hepatitis B Core Total Antibody NEGATIVE Hepatitis C Antibody NEGATIVE Erythrocyte Sedimentation Rate 36 H Absolute Reticulocyte Count 0.068 Percent Reticulocyte Count 1.8 H Uric Acid 5.0 Iron Level 58 Total Iron Binding Capacity 334 Percent Iron Saturation 17 L Ferritin 32.8 Lactate Dehydrogenase 457 HIV (1&2) Antibody NEGATIVE Medications Medications Current Medications Sodium Chloride (1/2 NS) 1,000 ml @ 100 mls/hr Q10H IV Last administered on 05:50; Admin Dose 100 MLS/HR; Start 01/24/17 at 17:37 Ondansetron HCl (Zofran Inj) 4 mg Q6H PRN IV NAUSEA AND/OR VOMITING Last administered on 01/25/17 07:27; Admin Dose 4 MG; Start 01/24/17 at 18:00 Acetaminophen (Tylenol Tab) 650 mg Q6H PRN PO PAIN LEVEL 1-3 OR FEVER; Start 01/24/17 at 18:00 Acetaminophen/ Hydrocodone Bitart ([place] (5/325)) 1 tab Q6H PRN PO MODERATE PAIN LEVEL 4-6 Last administered on 01/25/17 20:54; Admin Dose 1 TAB; Start at 18:00 Morphine Sulfate (morphine) 2 mg Q3 PRN IV SEVERE PAIN LEVEL 7-10 Last administered on 01/26/17 05:50; Admin Dose 2 MG; Start 01/24/17 at 18:00 Docusate Sodium (Colace) 100 mg Q12H PRN PO CONSTIPATION; Start 01/24/17 at 18: 00 Magnesium Hydroxide (Milk Of Mag) 30 ml DAILY PRN PO CONSTIPATION; Start at 18:00 Zolpidem Tartrate (Ambien) 5 mg QHS PRN PO SLEEP; Start 01/24/17 at 18:00 Aspirin (Halfprin) 81 mg DAILY PO Last administered on 01/26/17 08:57; Admin Dose 81 MG; Start 01/25/17 at 09:00 Gemfibrozil (Lopid) 600 mg DAILY PO Last administered on 01/26/17 08:57; Admin Dose 600 MG; Start 01/25/17 at 09:00 Lisinopril (Zestril) 10 mg DAILY PO Last administered on 01/26/17 08:58; Admin Dose 10 MG; Start 01/25/17 at 09:00 Propranolol HCl (Inderal) 10 mg DAILY PO Last administered on 01/26/17 08:58; Admin Dose 10 MG; Start 01/25/17 at 09:00 Enoxaparin Sodium (Lovenox) 90 mg Q12 SC Last administered on 01/26/17 09:01; Admin Dose 90 MG; Start 01/25/17 at 21:00 Warfarin Sodium (Coumadin) 5 mg DAILY@17 PO ; Start 01/26/17 at 17:00 VIOLETTE PARDO Jan 26, 2017 14:27
[2017-01-26 14:42] VITALS: BP 91/57; RESP 16
[2017-01-26] MEDS ORDERED: WARFARIN 5 MG TAB PO SCH (17:00)
[2017-01-26 20:00] VITALS: BP 128/77; RESP 20
--- NOTE | 2017-01-26 23:45 | PN ---
Date/Time of Note Date/Time of Note DATE: 01/26/17 TIME: 23:45 Assessment/Plan Lines/Catheters IV Catheter Type (from [facility]): Peripheral IV Murphy in Place (from [facility]): No Exam/Review of Systems Vital Signs Vitals Vital Signs Date Time Temp Pulse Resp B/P Pulse Ox O2 Delivery O2 Flow Rate FiO2 01/26/17 14:42 98.5 77 16 91/57 96 01/24/17 18:58 Room Air Intake and Output 01/25/17 01/25/17 01/26/17 15:00 23:00 07:00 Intake Total 1940 ml 1560 ml Output Total 1300 ml 700 ml Balance 640 ml 860 ml Results Result Diagram: 01/26/17 0439 01/26/17 0440 KATHIA CABAN MD Jan 26, 2017 23:45
[2017-01-27 02:00] VITALS: BP 134/77; RESP 20
[2017-01-27] MEDS: HYDROCODONE/APAP (5/325) TAB PO PRN (02:20)
[2017-01-27] MEDS: SOD CHLORIDE 0.45% 1,000 ML IV SCH (05:12)
[2017-01-27 06:41] LABS: PROTEIN, TOTAL 6.3 g/dL (6.1-8.1)
[2017-01-27 06:55] LABS: INR 0.98; PROTIME 13.1 Sec (11.9-14.9)
[2017-01-27 07:47] VITALS: BP 120/81; RESP 18
[2017-01-27] MEDS: PROPRANOLOL 10 MG TAB PO SCH (08:56)
[2017-01-27] MEDS: GEMFIBROZIL 600 MG TAB PO SCH (08:56)
[2017-01-27] MEDS: LISINOPRIL 10 MG TAB PO SCH (08:56)
[2017-01-27] MEDS: ASPIRIN (EC) 81 MG TAB PO SCH (08:56)
[2017-01-27] MEDS: ENOXAPARIN 100 MG/ML SYG SC SCH (08:57)
[2017-01-27] MEDS ORDERED: OXYC-279 PO (10:28)
[2017-01-27] MEDS ORDERED: APIX5TAB PO (10:28)
--- NOTE | 2017-01-27 10:30 | PDOCDIS ---
Discharge Instructions CONDITION Patient Condition: Good HOME CARE INSTRUCTIONS: Diet Instructions: Regular ACTIVITY: Activity Restrictions: No Restrictions FOLLOW UP/APPOINTMENTS Follow-up Plan F/U WITH YOUR PCP IN 1-2 WEEKS, F/U WITH DR JOANNE ROBBINS OF HEMATOLOGY VIOLETTE PARDO Jan 27, 2017 10:30
--- NOTE | 2017-01-27 12:24 | CONS ---
Date/Time of Note Date/Time of Note DATE: 01/27/17 TIME: 12:22 Assessment/Plan Assessment/Plan Chief Complaint/Hosp Course 1. 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 RECORD-P W-UP IN PROGRESS OK TO DC TODAY ON ELIISIDRA D/W DR PARDO 2. Leukocytosis-likely reactive Monitor 3. Elevated LFTs hepatitis panel-P Ultrasound of liver shows fatty liver with likely chronic liver disease 4. INCREASED GLOBULINS- CHECK SPEP AND QUANTITATIVE GLOBULINS PPx: Lovenox Problems: Consultation Date/Type/Reason Admit Date/Time Jan 26, 2017 at 11:31 Initial Consult Date 01/25/17 [facility] Referring Provider: VIOLETTE PARDO 24 HR Interval Summary Free Text/Dictation ALL NOTED W-UP IN PROGRESS OK TO DC TODAY ON ELIISIDRA D/W DR PARDO Exam/Review of Systems Vital Signs Vitals Vital Signs Date Time Temp Pulse Resp B/P Pulse Ox O2 Delivery O2 Flow Rate FiO2 01/27/17 07:47 98.6 72 18 120/81 99 01/24/17 18:58 Room Air Intake and Output 01/26/17 01/26/17 01/27/17 15:00 23:00 07:00 Intake Total 2200 ml 1280 ml Output Total 900 ml 2 ml Balance 1300 ml 1278 ml Exam Const: [] Moderate distress Head: Atraumatic Eyes: Normal Conjunctiva ENT: Normal External Ears, Nose and Mouth. Neck: Full range of motion..~ No meningismus. Resp: Clear to auscultation bilaterally Cardio: Regular rate and rhythm, no murmurs Abd: Soft, moderate left upper quadrant tenderness without guarding or rebound, non distended. Normal bowel sounds Skin: No petechiae or rashes Back: No midline or flank tenderness Ext: No cyanosis, or edema Neur: Awake and alert 3, no focal deficits Psych: Normal Mood and Affect Results Result Diagram: 01/26/17 0439 01/26/17 0440 Results 24 hrs Laboratory Tests Test 01/27/17 05:59 Prothrombin Time 13.1 Prothrombin Time Ratio 1.0 INR International Normalized Ratio 0.98 Medications Medications Current Medications Sodium Chloride (1/2 NS) 1,000 ml @ 100 mls/hr Q10H IV Last administered on 05:12; Admin Dose 100 MLS/HR; Start 01/24/17 at 17:37 Ondansetron HCl (Zofran Inj) 4 mg Q6H PRN IV NAUSEA AND/OR VOMITING Last administered on 01/25/17 07:27; Admin Dose 4 MG; Start 01/24/17 at 18:00 Acetaminophen (Tylenol Tab) 650 mg Q6H PRN PO PAIN LEVEL 1-3 OR FEVER; Start 01/24/17 at 18:00 Acetaminophen/ Hydrocodone Bitart ([place] (5/325)) 1 tab Q6H PRN PO MODERATE PAIN LEVEL 4-6 Last administered on 01/27/17 02:20; Admin Dose 1 TAB; Start at 18:00 Morphine Sulfate (morphine) 2 mg Q3 PRN IV SEVERE PAIN LEVEL 7-10 Last administered on 01/26/17 05:50; Admin Dose 2 MG; Start 01/24/17 at 18:00 Docusate Sodium (Colace) 100 mg Q12H PRN PO CONSTIPATION; Start 01/24/17 at 18: 00 Magnesium Hydroxide (Milk Of Mag) 30 ml DAILY PRN PO CONSTIPATION; Start at 18:00 Zolpidem Tartrate (Ambien) 5 mg QHS PRN PO SLEEP; Start 01/24/17 at 18:00 Aspirin (Halfprin) 81 mg DAILY PO Last administered on 01/27/17 08:56; Admin Dose 81 MG; Start 01/25/17 at 09:00 Gemfibrozil (Lopid) 600 mg DAILY PO Last administered on 01/27/17 08:56; Admin Dose 600 MG; Start 01/25/17 at 09:00 Lisinopril (Zestril) 10 mg DAILY PO Last administered on 01/27/17 08:56; Admin Dose 10 MG; Start 01/25/17 at 09:00 Propranolol HCl (Inderal) 10 mg DAILY PO Last administered on 01/27/17 08:56; Admin Dose 10 MG; Start 01/25/17 at 09:00 Enoxaparin Sodium (Lovenox) 90 mg Q12 SC Last administered on 01/27/17 08:57; Admin Dose 90 MG; Start 01/25/17 at 21:00 Warfarin Sodium (Coumadin) 5 mg DAILY@17 PO Last administered on 01/26/17 17: 32; Admin Dose 5 MG; Start 01/26/17 at 17:00 JOANNE ROBBINS MD Jan 27, 2017 12:24
--- NOTE | 2017-01-27 12:53 | DS ---
Date/Time of Note Date/Time of Note DATE: 01/27/17 TIME: 12:39 Discharge Summary Admission/Discharge Info Admit Date/Time January 24, 2017 Discharge Date/Time January 27, 2017 Discharge Diagnosis 1. Left upper quadrant pain secondary to splenic infarction Patient was recently diagnosed with this at [facility], patient was hospitalized for a week and was recently discharged CT abdomen at outside hospital was reviewed and splenic infarction was noted on imaging Patient did have hypercoagulable workup initiated at [facility] but results are not known Patient does likely have hypercoagulable state as she does have history of stroke earlier this year required 6 months of debilitation the patient also has a positive family history with a father who had a massive stroke at 50 Hematology consultation appreciated for hyper coagulable workup in house, patient to follow-up with Dr. Robbins for results of workup as an outpatient Have discussed case with hematology and recommendation is to DC with Eliquis for likely lifelong treatment, case management has checked with [employer] to ensure coverage of Eliquis and Eliquis is covered under the plan but can only fill 30 days at a time, patient does understand that she will likely need lifelong anticoagulation that she needs to refill her prescription every 30 days DC with Percocet Vascular surgery consultation appreciated, no indication for surgery at this time 2. Leukocytosis-resolved 3. Elevated LFTs Hepatitis panel is negative Ultrasound of liver shows fatty liver with likely chronic liver disease Hospital Course Patient is a 41-year-old female with a history of stroke diagnosed earlier this year requiring 6 months of debilitation and splenic infarction which was recently diagnosed at [facility], she was discharged the day prior this admission after a week long hospitalization. Patient presented with a chief complaint of left upper quadrant pain. Patient states that she was unable to fill her prescription for [place] as local pharmacies did not have any [place] available to give her. CT abdomen at [facility] was reviewed and splenic infarction was noted. Patient did state that her stroke earlier this year was significant and required 6 months of rehabilitation. Patient has a positive family history of strokes with her father having had a massive stroke at the age of 50. Vascular surgery was consulted in the ED, patient did not require any surgery. 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 Patient did have a hypercoagulable workup initiated at [facility], the results of which are not known. Hypercoagulable workup was initiated once again here with hematology, patient understands that she needs to follow-up with hematology as an outpatient for results of hypercoagulable workup. Hematology recommended either Eliquis, Xarelto or Coumadin and patient insurance did cover Eliquis and hence this was prescribed, the patient was told that she will likely need lifelong Eliquis and she understood. On the day of discharge patient's vitals, labs physical exam are stable she had no further acute complaints questions answered. Patient understood the need to follow-up with hematology as outpatient. Home Meds Active Scripts Apixaban* (Eliquis*) 5 Mg Tablet, 5 MG PO BID, #30 TAB 3 Refills Prov:VIOLETTE PARDO 01/27/17 Oxycodone HCl/Acetaminophen (Percocet 5-325 mg Tablet) 1 Each Tablet, 1 EACH PO Q4 for PAIN, #30 TAB Prov:VIOLETTE PARDO 01/27/17 Reported Medications Gemfibrozil* (Gemfibrozil*) 600 Mg Tablet, 600 MG PO DAILY, TAB 01/24/17 Propranolol Hcl* (Propranolol Hcl*) 10 Mg Tablet, 10 MG PO DAILY, TAB 01/24/17 Lisinopril* (Lisinopril*) 10 Mg Tablet, 10 MG PO DAILY, #30 TAB 01/24/17 Discontinued Reported Medications Aspirin* (Aspirin* EC) 81 Mg Tablet., 81 MG PO DAILY, TAB 01/24/17 Follow-up Plan F/U WITH YOUR PCP IN 1-2 WEEKS, F/U WITH DR JOANNE ROBBINS OF HEMATOLOGY Primary Care Provider Neisha Perez MD Time spent on discharge: > 30 minutes VIOLETTE PARDO Jan 27, 2017 12:53
[2017-01-27 17:42] LABS: ALBUMIN 3.5 g/dL (3.8-4.8)
[2017-01-29 16:51] LABS: HOMOCYSTEINE - CARDIOVASCULAR 5.1 umol/L (<10.4)
== END 2017-01-27 15:34 | disposition home or self-care (01) | DRG 815 ==
LOC: E/R 09:29 → INTOOBSV 15:38 → PP2 15:38 → OBSVTOIN 01-26 11:31
PROVIDERS: ADMIT Family Medicine; ATTEND Family Medicine
DX: D73.5 Infarction of spleen (principal); D68.59 Other primary thrombophilia; K76.0 Fatty (change of) liver, not elsewhere classified; Z90.49 Acquired absence of other specified parts of digestive tract; Z86.73 Personal history of transient ischemic attack (TIA), and cerebral infarction without residual deficits; E66.01 Morbid (severe) obesity due to excess calories; Z68.36 Body mass index [BMI] 36.0-36.9, adult; D72.829 Elevated white blood cell count, unspecified; Z82.3 Family history of stroke; K76.89 Other specified diseases of liver
CPT/HCPCS: 36415; 76705; 80048; 80053; 81003; 81240; 81270; 82306; 82728; 82784; 83036; 83090; 83540; 83615; 83690; 83735; 83890; 84100; 84155; 84165; 84560; 85025; 85045; 85300; 85302; 85305; 85610; 85613; 85651; 85730; 86147; 86703; 86704; 86709; 86803; 87081; 87340; 90686; 96374; 96375; 96376; 99217; G0378; J1650; J1885; J2270; J2405; J7030

== ENCOUNTER 2017-07-10 16:09 | Emergency (ER) | END 2017-07-10 23:09 | disposition home or self-care (01) ==